=== PATIENT | female | born 1985 | race Caucasian/White ===

== ENCOUNTER 2017-10-13 14:45 | Emergency (ER) | payer SELFPAY ==
[~2017-10-13] VITALS: Ht 167.6 cm; Wt 68.5 kg
[2017-10-13 15:26] LABS: *BILIRUBIN,URIN NEGATIVE (NEGATIVE); *BLOOD, URINE NEGATIVE (NEGATIVE); *COLOR,URINE YELLOW (YELLOW); *KETONES,URINE NEGATIVE (NEGATIVE); *PROTEIN,URINE NEGATIVE (NEGATIVE); *UROBILINOGEN,URINE 0.2 E.U./dl (NORMAL); LEUKOCYTE ESTERASE ,URINE 1+ (NEGATIVE); NITRITE, URINE NEGATIVE (NEGATIVE); UGLUCOSE NEGATIVE (NEGATIVE)
[2017-10-13 15:28] LABS: *URINE HCG, QUAL NEGATIVE (NEGATIVE)
[2017-10-13 15:39] LABS: *CLARITY,URINE SLIGHTLY HAZY (CLEAR)
--- NOTE | 2017-10-13 15:40 | NUR ---
PATIENT WAS SEEN AND EVAL BY DR EVANS.
[2017-10-13 15:41] LABS: BACTERIA,URINE FEW /HPF (NONE SEEN); SQUAMOUS EPITHELIAL CELL,UR MODERATE /HPF (NONE SEEN)
[2017-10-13 15:55] VITALS: BP 135/78
--- NOTE | 2017-10-13 15:55 | NUR ---
Patient discharged to home in stable conditon. Verbal after care instructions given by DR Wade. Patient verbalizes understanding of instructions.
== END 2017-10-13 15:55 | disposition home or self-care (01) ==
LOC: ER 14:46
DX: M54.5 Low back pain (principal)
CPT/HCPCS: 81001; 84703; 99284; A4663; J7030